=== PATIENT | female | born 2000 ===

== ENCOUNTER 2020-10-02 03:00 | Emergency (ER) | payer MEDICAID, OTHER ==
[~2020-10-02] VITALS: Ht 172.7 cm; Wt 59.9 kg
--- NOTE | 2020-10-02 03:05 | NUR ---
Pt BIB [facility] for altered mental status. [employer] from [place] [id number] at bedside.
--- NOTE | 2020-10-02 03:08 | NUR ---
Dr. Camargo at bedside, MSE in progress.
--- NOTE | 2020-10-02 03:29 | NUR ---
Xray at bedside.
[2020-10-02] MEDS ORDERED: HALOPERIDOL LACTATE 5 MG/1 ML VIAL IM ONE (03:30)
[2020-10-02] MEDS ORDERED: HALOPERIDOL LACTATE 5 MG/1 ML VIAL ONE (03:31)
--- NOTE | 2020-10-02 03:40 | NUR ---
Patient placed on soft restrains for behavior and disruption to medical care. Attempted to distract patient, provide quite and calm environment and decrease stimuli and noted to be ineffective.
--- NOTE | 2020-10-02 03:41 | NUR ---
Called Gi from crisis team, Gi did not pickle processor and left voicemail.
[2020-10-02 03:59] LABS: HEMATOCRIT 41.3 % (31.2-41.9); MEAN CORPUSCULAR HEMOGLOBIN 29.3 uug (24.7-32.8); PLATELET COUNT (AUTO) 521 K/uL (179-408)
--- NOTE | 2020-10-02 04:01 | NUR ---
Attempted to call [facility] again with no answer.
[2020-10-02 04:03] LABS: ETHANOL < 3 MG/DL (0-0)
[2020-10-02 04:05] LABS: *BILIRUBIN,URIN 1+ (NEGATIVE); *BLOOD, URINE 1+ (NEGATIVE); *CLARITY,URINE CLOUDY (CLEAR); *COLOR,URINE YELLOW (YELLOW); *KETONES,URINE TRACE (NEGATIVE); *UROBILINOGEN,URINE 0.2 E.U./dl (NORMAL); LEUKOCYTE ESTERASE ,URINE 1+ (NEGATIVE); NITRITE, URINE POSITIVE (NEGATIVE); PH,URINE >=9.0 (5.0-8.0); UGLUCOSE NEGATIVE (NEGATIVE)
[2020-10-02 04:11] LABS: ALANINE AMINOTRANSFERASE 20 U/L (14-59); ALKALINE PHOSPHATASE 62 U/L (50-136); ASPARTATE AMINOTRANSFERASE 12 U/L (15-37); BILIRUBIN,DIRECT 0.1 mg/dL (0.0-0.2); BILIRUBIN,TOTAL 0.2 mg/dL (0.2-1.0); CARBON DIOXIDE 23 mmol/L (21-32); CHLORIDE 101 mmol/L (98-107); CREATININE 1.1 mg/dL (0.6-1.3); GLUCOSE 232 mg/dL (74-106); POTASSIUM 3.7 mmol/L (3.5-5.1); TOTAL PROTEIN, SERUM 8.3 g/dL (6.4-8.2); UREA NITROGEN, BLOOD 21 mg/dL (7-18)
[2020-10-02 04:16] LABS: *AMPHETAMINE, URINE NEGATIVE (NEGATIVE); *CANNABINOID, URINE POSITIVE (NEGATIVE); *COCCAINE, URINE POSITIVE (NEGATIVE); *OPIATE, URINE NEGATIVE (NEGATIVE); *PHENCYCLIDINE SCREEN,URINE NEGATIVE (NEGATIVE); BACTERIA,URINE MANY /HPF (NONE SEEN); SQUAMOUS EPITHELIAL CELL,UR MODERATE /HPF (NONE SEEN); WBC,URINE 20-50 /HPF (0-3)
[2020-10-02 04:17] LABS: *URINE HCG, QUAL NEGATIVE (NEGATIVE); MUCUS,URINE MODERATE /LPF (0-FEW)
[2020-10-02 04:18] LABS: ACETAMINOPHEN < 2.0 ug/mL (10-30)
--- NOTE | 2020-10-02 04:20 | NUR ---
Called Gi again, still did not answer.
--- NOTE | 2020-10-02 04:30 | NUR ---
Patient continues to be placed on restrains due to behavior, offered pt restroom privilages and fluids, patient strongly refuse. Skin noted to be intact. Patient still noted to be altered/dilusional. Attempted to reorient pt to reality, provided calm environement with decreased stimuli.
--- NOTE | 2020-10-02 04:37 | NUR ---
Called [facility] from crisis, did not pickle solution maker, left voicemail.
[2020-10-02] MEDS ORDERED: levoFLOXacin 750 MG TABLET PO ONE (05:00)
[2020-10-02] MEDS ORDERED: levoFLOXacin 750 MG TABLET ONE (05:07)
--- NOTE | 2020-10-02 05:12 | NUR ---
Removed right wrist restrain. Patient noted to be calmer and more cooperative, reeducated patient for safety precautions. Offered fluids and restroom privilages. Skin intact. Bed in lowest postition.
--- NOTE | 2020-10-02 05:12 | NUR ---
Note richy in EDM - 10/02/20 at 0532 by RADHA Removed wrist soft wrist restrains. Patient noted to be calmer and more cooperative, reeducated patient for safety precautions. Offered fluids and restroom privilages. Skin intact. Bed in lowest postition.
--- NOTE | 2020-10-02 06:18 | NUR ---
Patient attempted to elope and placed back on both wrist soft restrains. Skin intact.
--- NOTE | 2020-10-02 06:25 | NUR ---
Attempted to contact Gi from crisis, Gi still did not bulk picker.
--- NOTE | 2020-10-02 06:59 | NUR ---
Called Gi from crisis again, still no answer.
--- NOTE | 2020-10-02 07:22 | NUR ---
Offered patient fluids and to use restroom, skin intact. Patient is now resting comfortably in bed with eyes closed.
--- NOTE | 2020-10-02 08:05 | NUR ---
Pt resting in bed, c/o restraint being to tight/hurting. Removed right wrist restraint, contracted for behavior.
--- NOTE | 2020-10-02 09:01 | NUR ---
Pt's Mother, Gabi: -- Pt authorized release of information to her. Please call her with status of [id number] evaluation. Pt sleeping in bed, easily arousable, no complaints, no distress noted.
--- NOTE | 2020-10-02 10:10 | NUR ---
pt sleeping in bed, arouses easily, no complaints, no distress noted. Removed left wrist soft restraint.
--- NOTE | 2020-10-02 12:07 | NUR ---
Latoya, psych sub master, here in ER, taking pt off [id number] hold. Called pt's mother, mother will pick-up pt -- ETA: 1 hour.
[2020-10-02] MEDS ORDERED: CEPH500C2 PO (12:14)
[2020-10-02] MEDS ORDERED: NAPR500T6 PO (12:14)
[2020-10-02] MEDS ORDERED: CIPR-262 PO (12:14)
[2020-10-02 13:12] VITALS: BP 107/71
== END 2020-10-02 13:13 | disposition home or self-care (01) ==
LOC: ER 03:02
DX: F29 Unspecified psychosis not due to a substance or known physiological condition (principal); R00.0 Tachycardia, unspecified; N39.0 Urinary tract infection, site not specified; I95.9 Hypotension, unspecified; R78.2 Finding of cocaine in blood; R73.9 Hyperglycemia, unspecified; R94.31 Abnormal electrocardiogram [ECG] [EKG]; D72.829 Elevated white blood cell count, unspecified; Z20.822 Contact with and (suspected) exposure to COVID-19
CPT/HCPCS: 36415; 80048; 80076; 80299; 80307; 80320; 81001; 84703; 85025; 87086; 87426; 93005; 96372; 99285; J1630; A4663; G0480